=== PATIENT | female | born 1995 | race African-American/Black ===

== ENCOUNTER 2020-05-14 20:05 | Emergency (ER) | payer MEDICAID ==
[~2020-05-14] VITALS: Ht 162.6 cm; Wt 50.0 kg
[2020-05-14 20:20] VITALS: BP 108/47
[2020-05-14] MEDS ORDERED: HYDROXYZINE 25MG TABLET PO ONE (23:30)
== END 2020-05-14 23:45 | disposition home or self-care (01) ==
LOC: ER 20:05
DX: L30.9 Dermatitis, unspecified (principal); T78.40XA Allergy, unspecified, initial encounter; X58.XXXA Exposure to other specified factors, initial encounter
CPT/HCPCS: 99283